=== PATIENT | female | born 1985 | race American Indian/Alaskan Native ===

== ENCOUNTER 2018-03-01 00:33 | Emergency (ER) | payer OTHER ==
[2018-03-01 00:51] VITALS: BMI 21.2
[2018-03-01 00:55] VITALS: RESP 18; TEMP 97.3; O2SAT 100
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
[2018-03-01 02:03] VITALS: BP 155/89; PULSE 62
--- NOTE | 2018-03-01 09:46 | RAD ---
Date of service: 03/01/2018 PROCEDURE: Cervical Spine Radiographs. HISTORY: Pain. COMPARISON: None available. FINDINGS: BONES: There is normal alignment of the cervical vertebral bodies. There is straightening of the cervical spine with loss of normal cervical lordosis. Vertebral height is normal. Bone mineralization is normal. There is no acute fracture or traumatic anterior listhesis. The craniocervical junction is normal. The atlantoaxial joint normal. DISC SPACES: Normal. SOFT TISSUES: Normal. No prevertebral soft tissue swelling. OTHER FINDINGS: None. IMPRESSION: No acute fracture, spondylolisthesis or degenerative disc disease. Straightening of the cervical spine may be positional or related to muscle spasm.
== END 2018-03-01 02:05 | disposition home or self-care (01) ==
LOC: ED 00:33
DX: S16.1XXA Strain of muscle, fascia and tendon at neck level, initial encounter (principal); V49.49XA Driver injured in collision with other motor vehicles in traffic accident, initial encounter; Y92.410 Unspecified street and highway as the place of occurrence of the external cause; N76.0 Acute vaginitis; I10 Essential (primary) hypertension
CPT/HCPCS: 72050; 96372; 99284; J1885